=== PATIENT | female | born 1945 | race Two or more races ===

== ENCOUNTER → 2018-11-21 | Outpatient (CLI) | payer MEDICARE ==
--- NOTE | 2018-11-21 19:21 | ECHOF ---
Referral Reason:I35.0 Aortic stenosis MEASUREMENTS -------- HEIGHT: 157.5 cm WEIGHT: 102.1 kg BP: 175/80 RVIDd: 3.2 cm (< 3.3) IVSd: 1.5 cm (0.6 - 1.1) LVIDd: 4.2 cm (3.9 - 5.3) LVPWd: 1.4 cm (0.6 - 1.1) IVSs: 1.8 cm LVIDs: 2.7 cm LVPWs: 1.7 cm LA Diam: 3.5 cm (2.7 - 3.8) LAESV Index (A-L): 30.42 ml/m Ao Diam: 2.6 cm (2.0 - 3.7) AV Cusp: 1.5 cm (1.5 - 2.6) MV EXCURSION: 13.189 mm (> 18.000) MV EF SLOPE: 99 mm/s (70 - 150) EPSS: 0.3 cm MV E Prabhu: 1.29 m/s MV DecT: 179 ms MV A Prabhu: 0.71 m/s MV E/A Ratio: 1.81 AV maxP.39 mmHg AV meanP.55 mmHg AR PHT: 655 ms RAP: 5.00 mmHg RVSP: 39.77 mmHg FINDINGS -------- Sinus rhythm. This was a technically adequate study. The left ventricular size is normal. There is moderate concentric left ventricular hypertrophy. O verall left ventricular systolic function is normal with, an EF between 60 - 65 %. The right ventricle is normal in size. LA is midly dilated 29-33ml/m2. The right atrium is normal in size. Interatrial and interventricular septum intact. There is moderate aortic valve sclerosis. There is mild aortic stenosis present. Peak/mean gradie nt across the Aortic Valve is 24.39mmHg / 11.55mmHg. Mild mitral annular calcification present. Mild tricuspid regurgitation present. There is mild pulmonary hypertension. The right ventricular systolic pressure, as measured by Doppler, is 39.77mmHg. Trace/mild (physiologic) pulmonic regurgitation. The aortic root size is normal. Normal inferior vena cava with normal inspiratory collapse consistent with estimated right atrial pre ssure of 5 mmHg. There is no pericardial effusion. CONCLUSIONS -------- 1. Sinus rhythm. 2. This was a technically adequate study. 3. The left ventricular size is normal. 4. There is moderate concentric left ventricular hypertrophy. 5. Overall left ventricular systolic function is normal with, an EF between 60 - 65 %. 6. The right ventricle is normal in size. 7. LA is midly dilated 29-33ml/m2. 8. The right atrium is normal in size. 9. Interatrial and interventricular septum intact. 10. There is moderate aortic valve sclerosis. 11. There is mild aortic stenosis present. 12. Peak/mean gradient across the Aortic Valve is 24.39mmHg / 11.55mmHg. 13. Mild mitral annular calcification present. 14. Mild tricuspid regurgitation present. 15. There is mild pulmonary hypertension. 16. The right ventricular systolic pressure, as measured by Doppler, is 39.77mmHg. 17. Trace/mild (physiologic) pulmonic regurgitation. 18. The aortic root size is normal. 19. Normal inferior vena cava with normal inspiratory collapse consistent with estimated right atrial pressure of 5 mmHg. 20. There is no pericardial effusion. [employer]AT[employer] MANAGER: Merary Gracia RDCS
== END | disposition home or self-care (01) ==
LOC: RADECHMAIN 12:49
PROVIDERS: ATTEND Family Medicine
DX: I07.1 Rheumatic tricuspid insufficiency (principal); I27.20 Pulmonary hypertension, unspecified; I35.0 Nonrheumatic aortic (valve) stenosis; I37.1 Nonrheumatic pulmonary valve insufficiency; I35.8 Other nonrheumatic aortic valve disorders; I34.8 Other nonrheumatic mitral valve disorders
CPT/HCPCS: 93306

== ENCOUNTER → 2019-10-30 | Outpatient (CLI) | payer MEDICARE ==
--- NOTE | 2019-10-31 06:54 | US ---
EXAMINATION TYPE: US thyroid st tissue head/neck DATE OF EXAM: 10/30/2019 COMPARISON: NONE CLINICAL HISTORY: E07.89 Other specified disorders of thyroid. Other specified disorders of thyroid. Abnormal imaging at different facility per patient. GLAND SIZE: Right Lobe: 4.1 x 1.2 x 1.5 cm Overall Parenchyma: Heterogeneous Left Lobe: 6.7 x 1.9 x 2.5 cm Overall Parenchyma: Appears very heterogeneous Isthmus Thickness: 0.41 cm NODULES RIGHT: # of nodules measured on right: 1 1. 0.4 X 0.4 x 0.4 cm Mixed solid nodule with calcification at the mid pole with well-defined kolby ns. This nodule is as wide as it is tall and shows no intranodular vascularity. Prior size: no prior LEFT: # of nodules measured on left: 3 1. 2.3 X 1.7 x 1.8 cm heterogeneous solid nodule at the mid pole with irregular margins. This nodu le is taller than wide and shows intranodular vascularity. Prior size: no prior 2. 1.9 X 1.3 x 1.7 cm hypoechoic solid nodule at the lower pole with poorly defined margins. This n odule is taller than wide and shows intranodular vascularity. Prior size: no prior 3. 1.0 X 0.9 x 0.9 cm mixed mixed nodule at the lower pole with poorly defined margins. This nodule is as wide as it is tall and shows peripheral vascularity. Prior size: no prior ISTHMUS: # of nodules measured in the isthmus: 1 1. 0.5 X 0.6 x 0.4 cm hypoechoic cystic nodule at the lower pole with well-defined margins. This n odule is wider than tall and shows no intranodular vascularity. Prior size: no prior Bilateral neck scanned. Multiple hypoechoic areas with hyperechoic centers seen right neck. Largest m easures: 0.9 x 0.8 x 0.5 cm. IMPRESSION: 1. Enlarged heterogenous thyroid lobes with multiple nonspecific mixed, solid and cystic lesions seen . Correlate for multinodular goiter.
== END | disposition home or self-care (01) ==
LOC: RADUSWWP 16:55
PROVIDERS: ATTEND Family Medicine
DX: E04.2 Nontoxic multinodular goiter (principal)
CPT/HCPCS: 76536

== ENCOUNTER 2021-08-16 11:19 | Inpatient (IN) | payer MEDICARE ==
--- NOTE | 2021-08-16 11:38 | ED ---
General Adult HPI - General Chief complaint: Shortness of Breath Stated complaint: Low BP Time Seen by Provider: 08/16/21 11:25 Source: patient, family, RN notes reviewed Mode of arrival: ambulatory Limitations: no limitations - History of Present Illness Initial comments: Patient is a pleasant 76-year-old female presenting to the emergency department with fatigue. Onset of symptoms was several days ago. Patient did have 3 or 4 episodes of vomiting however that has resolved. No abdominal pain. Patient has mild leg swelling. Patient does have exertional dyspnea. No dyspnea on rest. No chest pain. Blood pressures morning was 97 systolic. - Related Data Allergies Allergy/AdvReac Type Severity Reaction Status Date / Time naproxen [From Aleve] Allergy Anaphylaxis Verified 08/16/21 11:24 Review of Systems ROS Statement: Those systems with pertinent positive or pertinent negative responses have been documented in the HPI. ROS Other: All systems not noted in ROS Statement are negative. Constitutional: Denies: fever Eyes: Denies: eye pain ENT: Denies: ear pain Respiratory: Reports: as per HPI, dyspnea Cardiovascular: Reports: dyspnea on exertion Endocrine: Reports: fatigue Gastrointestinal: Denies: abdominal pain Genitourinary: Denies: dysuria Musculoskeletal: Denies: back pain Skin: Denies: rash Neurological: Denies: weakness Past Medical History Past Medical History: Heart Failure, GERD/Reflux, Hypertension Additional Past Medical History / Comment(s): Gout History of Any Multi-Drug Resistant Organisms: None Reported Past Surgical History: No Surgical Hx Reported Past Psychological History: No Psychological Hx Reported Smoking Status: Never smoker Past Alcohol Use History: Occasional Past Drug Use History: None Reported General Exam Limitations: no limitations General appearance: alert, in no apparent distress Head exam: Present: normocephalic Eye exam: Present: normal appearance Neck exam: Present: normal inspection Respiratory exam: Present: normal lung sounds bilaterally Cardiovascular Exam: Present: bradycardia GI/Abdominal exam: Present: soft. Absent: tenderness Extremities exam: Present: pedal edema (+1 bilateral). Absent: calf tenderness Neurological exam: Present: alert Psychiatric exam: Present: normal affect, normal mood Skin exam: Present: normal color Course Vital Signs 08/16/21 08/16/21 11:20 12:26 Temperature 97.2 F L Pulse Rate 51 L 51 L Respiratory 22 20 Rate Blood Pressure 117/71 97/51 O2 Sat by Pulse 99 98 Oximetry EKG Findings - EKG Comments: EKG Findings:: Size pericardial 49. IL 183. QRS 91. QT 469. QTc 441. Normal axis. Normal QRS. No acute ST change. Medical Decision Making - Lab Data Result diagrams: 08/16/21 11:47 08/16/21 11:47 Lab Results 08/16/21 08/16/21 08/16/21 Range/Units 11:47 11:47 11:47 WBC 7.7 (3.8-10.6) k/uL RBC 3.79 L (3.80-5.40) m/uL Hgb 11.6 (11.4-16.0) gm/dL Hct 33.2 L (34.0-46.0) % MCV 87.6 D (80.0-100.0) fL MCH 30.6 (25.0-35.0) pg MCHC 34.9 (31.0-37.0) g/dL RDW 13.6 (11.5-15.5) % Plt Count 208 (150-450) k/uL MPV 9.0 Neutrophils % 86 % Lymphocytes % 5 % Monocytes % 4 % Eosinophils % 4 % Basophils % 0 % Neutrophils # 6.6 (1.3-7.7) k/uL Lymphocytes # 0.4 L (1.0-4.8) k/uL Monocytes # 0.3 (0-1.0) k/uL Eosinophils # 0.3 (0-0.7) k/uL Basophils # 0.0 (0-0.2) k/uL PT 10.8 (9.0-12.0) sec INR 1.0 (<1.2) APTT 24.8 (22.0-30.0) sec Sodium 119 L* (137-145) mmol/L Potassium 3.9 (3.5-5.1) mmol/L Chloride 89 L (98-107) mmol/L Carbon Dioxide 19 L (22-30) mmol/L Anion Gap 11 mmol/L BUN 45 H (7-17) mg/dL Creatinine 1.51 H (0.52-1.04) mg/dL Est GFR (CKD-EPI)AfAm 38 (>60 ml/min/1.73 sqM) Est GFR (CKD-EPI)NonAf 33 (>60 ml/min/1.73 sqM) Glucose 134 H (74-99) mg/dL Plasma Lactic Acid Sharath (0.7-2.0) mmol/L Calcium 8.3 L (8.4-10.2) mg/dL Total Bilirubin 0.7 (0.2-1.3) mg/dL AST 38 H (14-36) U/L ALT 36 H (4-34) U/L Alkaline Phosphatase 99 (38-126) U/L Troponin I (0.000-0.034) ng/mL NT-Pro-B Natriuret Pep pg/mL Total Protein 6.2 L (6.3-8.2) g/dL Albumin 3.2 L (3.5-5.0) g/dL Coronavirus (PCR) (Not Detectd) Influenza Type A RNA (Not Detectd) Influenza Type B (PCR) (Not Detectd) 08/16/21 08/16/21 08/16/21 Range/Units 11:47 11:47 11:47 WBC (3.8-10.6) k/uL RBC (3.80-5.40) m/uL Hgb (11.4-16.0) gm/dL Hct (34.0-46.0) % MCV (80.0-100.0) fL MCH (25.0-35.0) pg MCHC (31.0-37.0) g/dL RDW (11.5-15.5) % Plt Count (150-450) k/uL MPV Neutrophils % % Lymphocytes % % Monocytes % % Eosinophils % % Basophils % % Neutrophils # (1.3-7.7) k/uL Lymphocytes # (1.0-4.8) k/uL Monocytes # (0-1.0) k/uL Eosinophils # (0-0.7) k/uL Basophils # (0-0.2) k/uL PT (9.0-12.0) sec INR (<1.2) APTT (22.0-30.0) sec Sodium (137-145) mmol/L Potassium (3.5-5.1) mmol/L Chloride (98-107) mmol/L Carbon Dioxide (22-30) mmol/L Anion Gap mmol/L BUN (7-17) mg/dL Creatinine (0.52-1.04) mg/dL Est GFR (CKD-EPI)AfAm (>60 ml/min/1.73 sqM) Est GFR (CKD-EPI)NonAf (>60 ml/min/1.73 sqM) Glucose (74-99) mg/dL Plasma Lactic Acid Sharath 1.5 (0.7-2.0) mmol/L Calcium (8.4-10.2) mg/dL Total Bilirubin (0.2-1.3) mg/dL AST (14-36) U/L ALT (4-34) U/L Alkaline Phosphatase (38-126) U/L Troponin I <0.012 (0.000-0.034) ng/mL NT-Pro-B Natriuret Pep 1840 pg/mL Total Protein (6.3-8.2) g/dL Albumin (3.5-5.0) g/dL Coronavirus (PCR) (Not Detectd) Influenza Type A RNA (Not Detectd) Influenza Type B (PCR) (Not Detectd) 08/16/21 08/16/21 Range/Units 11:47 11:47 WBC (3.8-10.6) k/uL RBC (3.80-5.40) m/uL Hgb (11.4-16.0) gm/dL Hct (34.0-46.0) % MCV (80.0-100.0) fL MCH (25.0-35.0) pg MCHC (31.0-37.0) g/dL RDW (11.5-15.5) % Plt Count (150-450) k/uL MPV Neutrophils % % Lymphocytes % % Monocytes % % Eosinophils % % Basophils % % Neutrophils # (1.3-7.7) k/uL Lymphocytes # (1.0-4.8) k/uL Monocytes # (0-1.0) k/uL Eosinophils # (0-0.7) k/uL Basophils # (0-0.2) k/uL PT (9.0-12.0) sec INR (<1.2) APTT (22.0-30.0) sec Sodium (137-145) mmol/L Potassium (3.5-5.1) mmol/L Chloride (98-107) mmol/L Carbon Dioxide (22-30) mmol/L Anion Gap mmol/L BUN (7-17) mg/dL Creatinine (0.52-1.04) mg/dL Est GFR (CKD-EPI)AfAm (>60 ml/min/1.73 sqM) Est GFR (CKD-EPI)NonAf (>60 ml/min/1.73 sqM) Glucose (74-99) mg/dL Plasma Lactic Acid Sharath (0.7-2.0) mmol/L Calcium (8.4-10.2) mg/dL Total Bilirubin (0.2-1.3) mg/dL AST (14-36) U/L ALT (4-34) U/L Alkaline Phosphatase (38-126) U/L Troponin I (0.000-0.034) ng/mL NT-Pro-B Natriuret Pep pg/mL Total Protein (6.3-8.2) g/dL Albumin (3.5-5.0) g/dL Coronavirus (PCR) Not Detected (Not Detectd) Influenza Type A RNA Not Detected (Not Detectd) Influenza Type B (PCR) Not Detected (Not Detectd) - Radiology Data Radiology results: image reviewed (Chest x-ray shows no acute process) Disposition Clinical Impression: Hyponatremia, Acute kidney injury Disposition: ADMITTED IP TO THIS HOSP Is patient prescribed a controlled substance at d/c from ED?: No Referrals: Johnathon Escudero DO [Primary Care Provider] - 1-2 days Time of Disposition: 12:42
[2021-08-16 12:05] LABS: Albumin 3.2 g/dL (3.5-5.0); Calcium 8.3 mg/dL (8.4-10.2); Potassium 3.9 mmol/L (3.5-5.1); Total Bilirubin 0.7 mg/dL (0.2-1.3); Total Protein 6.2 g/dL (6.3-8.2)
[2021-08-16 12:10] LABS: Partial Thromboplastin Time 24.8 sec (22.0-30.0); Prothrombin Time 10.8 sec (9.0-12.0)
[2021-08-16 12:12] LABS: Basophils % (A) 0 %; Eosinophils # (A) 0.3 k/uL (0-0.7); Eosinophils % (A) 4 %; HCT 33.2 % (34.0-46.0); HGB 11.6 gm/dL (11.4-16.0); Lymphocytes # (A) 0.4 k/uL (1.0-4.8); Lymphocytes % (A) 5 %; MCH 30.6 pg (25.0-35.0); MCHC 34.9 g/dL (31.0-37.0); Monocytes # (A) 0.3 k/uL (0-1.0); Monocytes % (A) 4 %; Neutrophils # (A) 6.6 k/uL (1.3-7.7); Neutrophils % (A) 86 %; Platelet Count 208 k/uL (150-450); RBC 3.79 m/uL (3.80-5.40); RDW 13.6 % (11.5-15.5); WBC 7.7 k/uL (3.8-10.6)
[2021-08-16 12:15] LABS: MCV 87.6 fL (80.0-100.0)
--- NOTE | 2021-08-16 12:21 | XR ---
EXAMINATION TYPE: XR chest 2V DATE OF EXAM: 08/16/2021 COMPARISON: NONE HISTORY: Shortness of breath TECHNIQUE: Frontal and lateral views of the chest are obtained. FINDINGS: Scattered senescent parenchymal changes noted. Hyperinflation compatible with COPD. No evidence for infiltrate. No evidence for atelectasis. Heart size is stable. Mediastinal structures are stable and grossly unremarkable. No evidence for hilar prominence. Degenerative changes dorsal spine. IMPRESSION: 1. No evidence for acute pulmonary disease.
[2021-08-16] MEDS ORDERED: ONDANSETRON 4 MG/2 ML VIAL IVP PRN (12:42)
[2021-08-16] MEDS ORDERED: SODIUM CHLORIDE 0.9% 500 ML 500 ML IV STA (12:42)
[2021-08-16] MEDS ORDERED: SODIUM CHLORIDE 0.9% 1,000 ML IV STA (12:42)
[2021-08-16] MEDS ORDERED: NALOXONE 0.4 MG/ML 1 ML VIAL IV PRN (12:42)
[2021-08-16] MEDS ORDERED: SODIUM CHLORIDE 0.9% 1,000 ML IV SCH (12:45)
[2021-08-16] MEDS: PANTOPRAZOLE 40 MG/10 ML VIAL IV SCH (13:12)
--- NOTE | 2021-08-16 15:36 | P.NPCON ---
History of Present Illness - Reason for Consult Consult date: 08/16/21 acute renal failure, hyponatremia - Chief Complaint Not feeling well - History of Present Illness 76-year-old white lady coming to the hospital not feeling well for the last 1 week. Decreased oral intake. She had nausea with 3-4 episodes of vomiting. No diarrhea. No fevers chills or rigors. She thought she had flulike symptoms, with history of congestive heart failure was taking her medications which include lisinopril hydrochlorothiazide and was drinking plenty of water. She also noticed decreased urine output in the last week. No recent contrast studies or NSAID use. She has a baseline creatinine of 1.0-1.1 MG per DL with a GFR of 52, CK D3 1 suspected nephrosclerosis. Creatinine 4 days ago was 1.6, on admission 1.5 MG per DL. Sodium was 119. Currently on normal saline at 75 ML's an hour. Blood pressures soft low normal range. Review of Systems Constitutional: Reports as per HPI Past Medical History Past Medical History: Heart Failure, GERD/Reflux, Hypertension Additional Past Medical History / Comment(s): Gout History of Any Multi-Drug Resistant Organisms: None Reported Past Surgical History: No Surgical Hx Reported Past Psychological History: No Psychological Hx Reported Smoking Status: Never smoker Past Alcohol Use History: Occasional Past Drug Use History: None Reported Medications and Allergies Home Medications Medication Instructions Recorded Confirmed Type Allopurinol [Zyloprim] 100 mg PO DAILY 08/16/21 08/16/21 History Aspirin EC [Ecotrin Low Dose] 81 mg PO BID 08/16/21 08/16/21 History Atorvastatin [Lipitor] 40 mg PO HS 08/16/21 08/16/21 History Calcium Carbonate [Calcium] 1,200 mg PO DAILY 08/16/21 08/16/21 History Cholecalciferol [Vitamin D3 (25 25 mcg PO DAILY 08/16/21 08/16/21 History Mcg = 1000 Iu)] Cider Vinegar [Apple Cider Vinegar] 300 mg PO BID 08/16/21 08/16/21 History Cinnamon Bark [Cinnamon] 2,000 mg PO BID 08/16/21 08/16/21 History Cyanocobalamin (Vitamin B-12) 2,500 mcg PO DAILY 08/16/21 08/16/21 History [Vitamin B-12] Ferrous Sulfate [Feosol] 325 mg PO Q48H 08/16/21 08/16/21 History Folic Acid 0.8 mg PO DAILY 08/16/21 08/16/21 History Furosemide [Lasix] 40 mg PO DAILY 08/16/21 08/16/21 History Brenda Root 550mg 550 mg PO DAILY 08/16/21 08/16/21 History Glucosamine HCl/Chondroitin Luke 1 cap PO BID 08/16/21 08/16/21 History [Glucosamine-Chondroitin Cap] Krill/[place]-3/Dha/Epa/Lipids 1 cap PO DAILY 08/16/21 08/16/21 History [Krill Oil 350 mg Softgel] L.acidoph,Paracasei, B.lactis 1 cap PO DAILY 08/16/21 08/16/21 History [Probiotic] Lisinopril-Hctz 20-25 mg 1 tab PO DAILY 08/16/21 08/16/21 History [Zestoretic 20-25] Magnesium 100 mg PO DAILY 08/16/21 08/16/21 History Potassium Chloride ER [K-Dur 10] 10 meq PO DAILY 08/16/21 08/16/21 History Turmeric Root Extract [Turmeric] 500 mg PO DAILY 08/16/21 08/16/21 History Ubidecarenone [Co Q-10] 200 mg PO DAILY 08/16/21 08/16/21 History Zinc 50 mg PO DAILY 08/16/21 08/16/21 History carvediloL [Coreg] 6.25 mg PO BID 08/16/21 08/16/21 History Allergies Allergy/AdvReac Type Severity Reaction Status Date / Time naproxen [From Aleve] Allergy Anaphylaxis Verified 08/16/21 12:47 Physical Exam Vitals: Vital Signs Temp Pulse Pulse Resp BP BP Pulse Ox 08/16/21 13:58 98.1 F 55 L 16 144/71 100 08/16/21 13:07 62 18 108/49 100 08/16/21 12:26 51 L 20 97/51 98 08/16/21 11:20 97.2 F L 51 L 22 117/71 99 Intake and Output 08/16/21 08/16/21 08/16/21 06:59 14:59 22:59 Other: Weight 90.718 kg No acute distress S1-S2 heard Decreased breath sounds Abdomen soft, bladder distention No edema Results - Lab Results Most recent lab results Calcium 8.3 mg/dL (8.4-10.2) L 08/16/21 11:47 08/16/21 11:47 08/16/21 11:47 Assessment and Plan Assessment: #1 acute kidney injury suspect prerenal with decreased oral intake and conc omitant use of diuretics. #2 hyponatremia suspect hypovolemic with decreased oral intake along with thiazide diuretic. -SIADH is a possibility with nausea and free water intake. #3 diastolic CHF currently compensated #4 low normal blood pressures #5 metabolic acidosis secondary to acute kidney injury. Plan: #1 agree with normal saline continue at 75 ML's an hour. #2 bladder scan to rule out urinary retention #3 urine analysis and urine electrolytes. #4 agree with holding all antihypertensive medications including diuretics. #5 check urine osmolality, serum osmolality, TSH, cortisol, repeat BMP and uric acid #6 avoid nephrotoxic agents and hypotensive episodes
[2021-08-16 18:34] LABS: African American GFR (CKD) 44 (>60 ml/min/1.73 sqM); Anion Gap 7 mmol/L; Blood Urea Nitrogen 42 mg/dL (7-17); Calcium 8.1 mg/dL (8.4-10.2); Carbon Dioxide 22 mmol/L (22-30); Chloride 91 mmol/L (98-107); Glucose 124 mg/dL (74-99); Non-African American GFR(CKD) 39 (>60 ml/min/1.73 sqM); Potassium 4.1 mmol/L (3.5-5.1); Sodium 120 mmol/L (137-145)
[2021-08-16] MEDS: FAMOTIDINE 20 MG TAB PO SCH (20:18)
--- NOTE | 2021-08-16 21:24 | P.HPIM ---
History of Present Illness H&P Date: 08/16/21 Chief Complaint: generalized weakness and fatigue Patient is a 76-year-old female with a known history of hypertension, GERD and history of gout, chronic CHF with diastolic dysfunction presents to ER with complaints of generalized weakness and fatigue for the past 1 week. Patient states that she felt like flu symptoms. Did have nausea and episodes of vomiting couple days ago. Patient has been having decreased oral intake. Today patient felt very weak and fatigued which is worsening and made her to come to ER. Patient has been taking her medications. Patient is on Coreg, lisinopril, hydrochlorothiazide, and Lasix at home. Patient also has decreased urine output . Did have chills and sweating few days ago but currently denies any fever or chills. Chest x-ray showed no acute cardiopulmonary process EKG showed sinus bradycardia with heart rate 49. Laboratory data showed WBC 7.7 hemoglobin 11.6 and platelets 208 Sodium 119, potassium 3.9 chloride 89 bicarb is 19 BUN 45 creatinine 1.51 AST 38 ALT 36 alk phos 99 and troponin x1, proBNP 1840 Albumin 3.2 Influenza A and coronavirus PCR not detected. Patient was hypotensive with blood pressure 97/51 on admission. Pulse ox 98% on room air. Review of Systems Constitutional: Patient denies any fever or chills . Patient does have generalized weakness and fatigue. Abdomen: Patient denied nausea vomiting and diarrhea and abdominal pain. Patient did have of vomiting Cardiovascular: Patient denies any chest pain or short of breath no palpitations. Respiratory: patient denied any cough or sputum production. No shortness of breath Neurologic: Patient denied any numbness or tingling headache. Musculoskeletal: Patient denies any complaints of joint swelling or deformity. Skin: Negative Psychiatric: Negative Endocrine: No heat or cold intolerance. No recent weight gain. Genitourinary: No dysuria or hematuria. All other 14 point ROS negative except the above Past Medical History Past Medical History: Heart Failure, GERD/Reflux, Hypertension Additional Past Medical History / Comment(s): Gout History of Any Multi-Drug Resistant Organisms: None Reported Past Surgical History: No Surgical Hx Reported Past Psychological History: No Psychological Hx Reported Smoking Status: Never smoker Past Alcohol Use History: Occasional Past Drug Use History: None Reported Medications and Allergies Home Medications Medication Instructions Recorded Confirmed Type Allopurinol [Zyloprim] 100 mg PO DAILY 08/16/21 08/16/21 History Aspirin EC [Ecotrin Low Dose] 81 mg PO BID 08/16/21 08/16/21 History Atorvastatin [Lipitor] 40 mg PO HS 08/16/21 08/16/21 History Calcium Carbonate [Calcium] 1,200 mg PO DAILY 08/16/21 08/16/21 History Cholecalciferol [Vitamin D3 (25 25 mcg PO DAILY 08/16/21 08/16/21 History Mcg = 1000 Iu)] Cider Vinegar [Apple Cider Vinegar] 300 mg PO BID 08/16/21 08/16/21 History Cinnamon Bark [Cinnamon] 2,000 mg PO BID 08/16/21 08/16/21 History Cyanocobalamin (Vitamin B-12) 2,500 mcg PO DAILY 08/16/21 08/16/21 History [Vitamin B-12] Ferrous Sulfate [Feosol] 325 mg PO Q48H 08/16/21 08/16/21 History Folic Acid 0.8 mg PO DAILY 08/16/21 08/16/21 History Furosemide [Lasix] 40 mg PO DAILY 08/16/21 08/16/21 History Brenda Root 550mg 550 mg PO DAILY 08/16/21 08/16/21 History Glucosamine HCl/Chondroitin Luke 1 cap PO BID 08/16/21 08/16/21 History [Glucosamine-Chondroitin Cap] Krill/[place]-3/Dha/Epa/Lipids 1 cap PO DAILY 08/16/21 08/16/21 History [Krill Oil 350 mg Softgel] L.acidoph,Paracasei, B.lactis 1 cap PO DAILY 08/16/21 08/16/21 History [Probiotic] Lisinopril-Hctz 20-25 mg 1 tab PO DAILY 08/16/21 08/16/21 History [Zestoretic 20-25] Magnesium 100 mg PO DAILY 08/16/21 08/16/21 History Potassium Chloride ER [K-Dur 10] 10 meq PO DAILY 08/16/21 08/16/21 History Turmeric Root Extract [Turmeric] 500 mg PO DAILY 08/16/21 08/16/21 History Ubidecarenone [Co Q-10] 200 mg PO DAILY 08/16/21 08/16/21 History Zinc 50 mg PO DAILY 08/16/21 08/16/21 History carvediloL [Coreg] 6.25 mg PO BID 08/16/21 08/16/21 History Allergies Allergy/AdvReac Type Severity Reaction Status Date / Time naproxen [From Aleve] Allergy Anaphylaxis Verified 08/16/21 12:47 Physical Exam Vitals: Vital Signs Temp Pulse Pulse Resp BP BP Pulse Ox 08/16/21 13:58 98.1 F 55 L 16 144/71 100 08/16/21 13:07 62 18 108/49 100 08/16/21 12:26 51 L 20 97/51 98 08/16/21 11:20 97.2 F L 51 L 22 117/71 99 Intake and Output 08/16/21 08/16/21 08/16/21 06:59 14:59 22:59 Intake Total 375 Balance 375 Intake: Intake, IV Titration 375 Amount Sodium Chloride 0.9% 1, 375 000 ml @ 75 mls/hr IV . [id number] LAUREN Rx#:[id number] Other: # Voids 2 Weight 90.718 kg PHYSICAL EXAMINATION: Patient is lying in the bed comfortably, no acute distress, awake alert and oriented.. HEENT: Normocephalic. Neck is supple. Pupils reactive. Nostrils clear. Oral cavi ty is moist. Neck reveals no JVD, carotid bruits, or thyromegaly. CHEST EXAMINATION: Trachea is central. Symmetrical expansion. Lung osuna clear to auscultation and percussion. CARDIAC: Normal S1, S2 with no gallops. No murmurs ABDOMEN: Soft. Bowel sounds normal. No organomegaly. No abdominal bruits. Extremities: Trace bilateral pedal edema. No clubbing or cyanosis Neurologically awake, alert, oriented x3 with well-coordinated movements. No focal deficits noted Skin: No rash or skin lesions. Psychiatric: Cooperative. Nonsuicidal Musculoskeletal: No joint swelling or deformity. Normal range of motion. Results CBC & Chem 7: 08/16/21 11:47 08/16/21 17:59 Labs: Abnormal Lab Results - Last 24 Hours (Table) 08/16/21 08/16/21 08/16/21 Range/Units 11:47 11:47 17:59 RBC 3.79 L (3.80-5.40) m/uL Hct 33.2 L (34.0-46.0) % Lymphocytes # 0.4 L (1.0-4.8) k/uL Sodium 119 L* 120 L (137-145) mmol/L Chloride 89 L 91 L (98-107) mmol/L Carbon Dioxide 19 L (22-30) mmol/L BUN 45 H 42 H (7-17) mg/dL Creatinine 1.51 H 1.33 H (0.52-1.04) mg/dL Glucose 134 H 124 H (74-99) mg/dL Calcium 8.3 L 8.1 L (8.4-10.2) mg/dL AST 38 H (14-36) U/L ALT 36 H (4-34) U/L Total Protein 6.2 L (6.3-8.2) g/dL Albumin 3.2 L (3.5-5.0) g/dL Thrombosis Risk Factor Assmnt - DVT/VTE Prophylaxis DVT/VTE Prophylaxis: Pharmacologic Prophylaxis ordered - Choose All That Apply Any of the Below Risk Factors Present?: Yes Each Factor Represents 1 point: Obesity (BMI >25), Serious lung disease incl. pneumonia (< 1month) Other Risk Factors: Yes Each Risk Factor Represents 2 Points: Age 61-74 years Each Risk Factor Represents 3 Points: Family history of DVT/PE Thrombosis Risk Factor Assessment Total Risk Factor Score: 7 Thrombosis Risk Factor Assessment Level: High Risk Assessment and Plan Assessment: Acute kidney injury likely prerenal due to decreased oral intake and medications including lisinopril and hydrochlorothiazide. Creatinine 1.51 on admission Generalized weakness and fatigue Hypoosmolar hyponatremia. 119 due to decreased oral intake and hydrochlorothiazide. Chronic CHF with diastolic dysfunction Hypertension patient is hypotensive currently Mild transaminitis DVT prophylaxis with heparin subcu Plan:-Patient becomes IV hydration with normal saline at 75 cc/h. Bladder scan was ordered to rule out urine retention. Follow-up urine electrolytes. Antihypertensives are on hold currently. Follow-up sodium level and renal function closely. Nephrology is on board. Time with Patient: Greater than 30
[2021-08-17] MEDS: HEPARIN SODIUM,PORCINE/PF 5,000 UNIT/0.5 ML SYRINGE SQ SCH ×2 (07:36→19:45)
[2021-08-17] MEDS: PANTOPRAZOLE 40 MG/10 ML VIAL IV SCH (07:36)
[2021-08-17] MEDS: FAMOTIDINE 20 MG TAB PO SCH ×2 (07:37→19:45)
[2021-08-17] MEDS: ACETAMINOPHEN TAB 325 MG TAB PO PRN ×2 (07:37→19:44)
[2021-08-17 10:08] LABS: African American GFR (CKD) 54.9 (60.0-200.0); Anion Gap 12.6 mmol/L (10.00-18.00); BUN/Creat Ratio 28.57 Ratio (12.00-20.00); Calcium 8.3 mg/dL (8.7-10.3); Carbon Dioxide 20.3 mmol/L (20.0-27.5); Magnesium 2.1 mg/dL (1.5-2.4); Non-African American GFR(CKD) 47.4 (60.0-200.0); Potassium 3.9 mmol/L (3.5-5.5)
--- NOTE | 2021-08-17 15:32 | P.PN ---
Subjective Patient is seen for follow-up for hyponatremia, mostly hypovolemic and improved with normal saline. Serum sodium has improved to 130 today from 120 yesterday. Admission sodium was 119 yesterday morning. Overall patient states she is feeling better and feels like her normal self. Eating well Maintained on normal saline. Objective - Vital Signs Vital signs: Vital Signs Temp 97.5 F L 08/17/21 11:09 Pulse 64 08/17/21 11:09 Resp 18 08/17/21 11:09 BP 103/57 08/17/21 11:09 Pulse Ox 96 08/17/21 11:09 Intake & Output 08/16/21 08/17/21 08/17/21 18:59 06:59 18:59 Intake Total 375 660 Balance 375 660 Weight 90.718 kg Intake: Intake, IV Titration 375 Amount Sodium Chloride 0.9% 1, 375 000 ml @ 75 mls/hr IV . [id number] LAUREN Rx#:[id number] Oral 660 Other: Voiding Method Toilet # Voids 2 3 1 - Exam Patient is awake, comfortable, not in any acute distress Examination of the heart S1 and S2 Examination lungs bilateral breath sounds are heard Abdomen is soft nontender Examination of lower extremities shows no evidence of edema LEASE OUT MAN exam grossly intact - Labs CBC & Chem 7: 08/16/21 11:47 08/17/21 05:11 Labs: Abnormal Lab Results - Last 24 Hours (Table) 08/16/21 08/17/21 Range/Units 17:59 05:11 Sodium 120 L 130 L (137-145) mmol/L Chloride 91 L (98-107) mmol/L BUN 42 H 32.0 H (7-17) mg/dL Creatinine 1.33 H (0.52-1.04) mg/dL Est GFR (CKD-EPI)AfAm 54.9 L (60.0-200.0) Est GFR (CKD-EPI)NonAf 47.4 L (60.0-200.0) BUN/Creatinine Ratio 28.57 H (12.00-20.00) Ratio Glucose 124 H (74-99) mg/dL Calcium 8.1 L 8.3 L (8.4-10.2) mg/dL Assessment and Plan Assessment: 1. Hypovolemic hyponatremia currently improved with saline 2. Acute kidney injury, prerenal, improved with IV hydration 3. History of diastolic CHF 4. Metabolic acidosis associated with acute kidney injury currently improved Plan: Maintain good oral intake. Repeat labs in a.m. If patient is discharged she will need repeat labs to be done in 1-2 days post discharge. Hold hydrochlorothiazide post discharge Patient will need to resume low-dose Lasix as outpatient, probably in about 5-7 days depending on her volume status.
[2021-08-17] MEDS: SODIUM CHLORIDE 0.9% 1,000 ML IV SCH (17:23)
[2021-08-18] MEDS: SODIUM CHLORIDE 0.9% 1,000 ML IV SCH (05:12)
[2021-08-18] MEDS ORDERED: PANTOPRAZOLE 40 MG TABLET PO SCH (07:30)
[2021-08-18 09:17] LABS: Basophils # (A) 0.01 X 10*3/uL (0.00-0.10); Basophils % (A) 0.2 %; Eosinophils # (A) 0.21 X 10*3/uL (0.04-0.35); Eosinophils % (A) 3.5 %; HCT 27.7 % (37.2-46.3); HGB 9.3 g/dL (12.0-15.0); Immature Grans, Automated 0.7 %; Lymphocytes # (A) 0.52 X 10*3/uL (0.90-5.00); Lymphocytes % (A) 8.6 %; MCH 29.5 pg (27.0-32.0); MCHC 33.6 g/dL (32.0-37.0); MCV 87.9 fL (80.0-97.0); Mean Platelet Volume 10.7 fL (9.5-12.2); Monocytes # (A) 0.58 X 10*3/uL (0.20-1.00); Monocytes % (A) 9.6 %; NRBC Per 100 WBC 0 /100 WBCS (0.0-0.0); Neutrophils # (A) 4.67 X 10*3/uL (1.80-7.70); Neutrophils % (A) 77.4 %; Platelet Count 252 X 10*3/uL (140-440); RBC 3.15 X 10*6/uL (4.10-5.20); RDW 13.2 % (11.5-14.5); WBC 6.03 X 10*3/uL (4.50-10.00)
[2021-08-18 09:20] LABS: African American GFR (CKD) 62.9 (60.0-200.0); Anion Gap 8.2 mmol/L (10.00-18.00); Calcium 8.1 mg/dL (8.7-10.3); Carbon Dioxide 20.8 mmol/L (20.0-27.5); Non-African American GFR(CKD) 54.3 (60.0-200.0); Potassium 4.1 mmol/L (3.5-5.5)
--- NOTE | 2021-08-18 09:36 | P.PN ---
Subjective Progress Note Date: 08/17/21 Patient is a 76-year-old female with a known history of hypertension, GERD and history of gout, chronic CHF with diastolic dysfunction presents to ER with complaints of generalized weakness and fatigue for the past 1 week. Patient states that she felt like flu symptoms. Did have nausea and episodes of v omiting couple days ago. Patient has been having decreased oral intake. Today patient felt very weak and fatigued which is worsening and made her to come to ER. Patient has been taking her medications. Patient is on Coreg, lisinopril, hydrochlorothiazide, and Lasix at home. Patient also has decreased urine output. Did have chills and sweating few days ago but currently denies any fever or chills. Chest x-ray showed no acute cardiopulmonary process EKG showed sinus bradycardia with heart rate 49. Laboratory data showed WBC 7.7 hemoglobin 11.6 and platelets 208 Sodium 119, potassium 3.9 chloride 89 bicarb is 19 BUN 45 creatinine 1.51 AST 38 ALT 36 alk phos 99 and troponin x1, proBNP 1840 Albumin 3.2 Influenza A and coronavirus PCR not detected. Patient was hypotensive with blood pressure 97/51 on admission. Pulse ox 98% on room air. 08/17/2021 Patient is currently sitting on the head of the bed. Awake alert [place] x3. Feels better. Generalized weakness is improving. No complaints of chest pain or shortness of. No cough or sputum production. Sodium level improved to 130 today. BUN 32 and creatinine 1.1. Blood pressure is 103/57 this morning. Blood pressure medications continues to be on hold. Nephrology is on board. Patient is being continued on normal saline at 75 cc/h. Encourage oral diet. Current medications reviewed. Objective - Vital Signs Vital signs: Vital Signs Temp 98.2 F 08/17/21 20:48 Pulse 71 08/17/21 20:48 Resp 16 08/17/21 20:48 BP 146/69 08/17/21 20:48 Pulse Ox 97 08/17/21 20:48 Intake & Output 08/17/21 08/17/21 08/18/21 06:59 18:59 06:59 Intake Total 1560 Balance 1560 Intake: Intake, IV Titration 900 Amount Sodium Chloride 0.9% 1, 900 000 ml @ 75 mls/hr IV . [id number] STA Rx#:[id number] Oral 660 Other: Voiding Method Toilet Toilet # Voids 3 6 - Exam PHYSICAL EXAMINATION: Patient is lying in the bed comfortably, no acute distress, awake alert and oriented.. HEENT: Normocephalic. Neck is supple. Pupils reactive. Nostrils clear. Oral cavity is moist. Neck reveals no JVD, carotid bruits, or thyromegaly. CHEST EXAMINATION: Trachea is central. Symmetrical expansion. Lung osuna clear to auscultation and percussion. CARDIAC: Normal S1, S2 with no gallops. No murmurs ABDOMEN: Soft. Bowel sounds normal. No organomegaly. No abdominal bruits. Extremities: Trace bilateral pedal edema. No clubbing or cyanosis Neurologically awake, alert, oriented x3 with well-coordinated movements. No focal deficits noted Skin: No rash or skin lesions. Psychiatric: Cooperative. Nonsuicidal Musculoskeletal: No joint swelling or deformity. Normal range of motion. - Labs CBC & Chem 7: 08/18/21 06:41 08/18/21 06:41 Labs: Abnormal Lab Results - Last 24 Hours (Table) 08/17/21 Range/Units 05:11 Sodium 130 L (135-145) mmol/L BUN 32.0 H (9.0-27.0) mg/dL Est GFR (CKD-EPI)AfAm 54.9 L (60.0-200.0) Est GFR (CKD-EPI)NonAf 47.4 L (60.0-200.0) BUN/Creatinine Ratio 28.57 H (12.00-20.00) Ratio Calcium 8.3 L (8.7-10.3) mg/dL Assessment and Plan Assessment: Acute kidney injury likely prerenal due to decreased oral intake and medications including lisinopril and hydrochlorothiazide. Creatinine 1.51 on admission. Improving. Generalized weakness and fatigue Hypoosmolar hyponatremia. Sodium level 119 due to decreased oral intake and hydrochlorothiazide. Improved to 130 today Chronic CHF with diastolic dysfunction Hypertension patient is hypotensive currently Mild transaminitis DVT prophylaxis with heparin subcu Plan:-Patient becomes IV hydration with normal saline at 75 cc/h. patient denied any urine retention. Follow-up urine electrolytes. Antihypertensives are on hold currently. Follow-up sodium level and renal function closely. Nephrology is on board. Time with Patient: Greater than 30
[2021-08-18] MEDS: ACETAMINOPHEN TAB 325 MG TAB PO PRN (10:56)
[2021-08-18] MEDS: HEPARIN SODIUM,PORCINE/PF 5,000 UNIT/0.5 ML SYRINGE SQ SCH (10:56)
[2021-08-18] MEDS: FAMOTIDINE 20 MG TAB PO SCH (11:05)
[2021-08-18 12:05] VITALS: BP 146/82; PULSE 68; RESP 17; TEMP 98
--- NOTE | 2021-08-18 17:23 | P.PN ---
Subjective Patient is seen for follow-up for hyponatremia, mostly hypovolemic and improved with normal saline. Serum sodium has improved to 132 today. Admission sodium was 119 yesterday morning. Overall patient states she is feeling better and feels like her normal self. Eating well Maintained on normal saline. Objective - Vital Signs Vital signs: Vital Signs Temp 98 F 08/18/21 12:04 Pulse 68 08/18/21 12:04 Resp 17 08/18/21 12:04 BP 146/82 08/18/21 12:04 Pulse Ox 97 08/18/21 12:04 Intake & Output 08/17/21 08/18/21 08/18/21 18:59 06:59 18:59 Intake Total 1560 900 960 Balance 1560 900 960 Intake: Intake, IV Titration 900 900 Amount Sodium Chloride 0.9% 1, 900 000 ml @ 75 mls/hr IV . [id number] LAUREN Rx#:[id number] Sodium Chloride 0.9% 1, 900 000 ml @ 75 mls/hr IV . [id number] STA Rx#:[id number] Oral 660 960 Other: Voiding Method Toilet # Voids 6 2 1 # Bowel Movements 1 - Exam Patient is awake, comfortable, not in any acute distress She is currently on the commode - Labs CBC & Chem 7: 08/18/21 06:41 08/18/21 06:41 Labs: Abnormal Lab Results - Last 24 Hours (Table) 08/18/21 08/18/21 Range/Units 06:41 06:41 RBC 3.15 L (4.10-5.20) X 10*6/uL Hgb 9.3 L (12.0-15.0) g/dL Hct 27.7 L (37.2-46.3) % Lymphocytes # 0.52 L (0.90-5.00) X 10*3/uL Sodium 132 L (135-145) mmol/L Anion Gap 8.20 L (10.00-18.00) mmol/L Est GFR (CKD-EPI)NonAf 54.3 L (60.0-200.0) Glucose 115 H (70-110) mg/dL Calcium 8.1 L (8.7-10.3) mg/dL Assessment and Plan Assessment: 1. Hypovolemic hyponatremia currently improved with saline 2. Acute kidney injury, prerenal, improved with IV hydration 3. History of diastolic CHF, currently compensated 4. Metabolic acidosis associated with acute kidney injury currently improved Plan: Hold hydrochlorothiazide post discharge Patient will need to resume low-dose Lasix as outpatient, probably in about 5-7 days depending on her volume status. Repeat labs in about 1 week post discharge
[2021-08-19] MEDS ORDERED: FAMOTIDINE 20 MG TAB PO SCH (09:00)
--- NOTE | 2021-08-19 12:08 | P.DS ---
Providers Date of admission: 08/16/21 12:45 Expected date of discharge: 08/18/21 Attending physician: Mabel Amos Consults: 08/16/21 12:43 Consult Physician Routine Consulting Provider: Shira Green Consult Reason/Comments: Hyponatremia, bry Do you want consulting provider notified?: Yes Primary care physician: Johnathon Wiley Hospital Course: Final diagnosis Acute kidney injury likely prerenal due to decreased oral intake and medications including lisinopril and hydrochlorothiazide. Creatinine 1.51 on admission. Improving. Generalized weakness and fatigue Hypoosmolar hyponatremia. Sodium level 119 due to decreased oral intake and hydrochlorothiazide. Improved to 132 today Chronic CHF with diastolic dysfunction Hypertension patient is hypotensive currently Mild transaminitis DVT prophylaxis full code Discharge disposition Patient is being discharged in a stable condition with guarded prognosis to home. Patient will follow-up with Dr. Wiley in the outpatient setting upon discharge. Patient is to follow up with nephrology as scheduled. Total time taken is greater than 35 minutes. Hospital course This is a 76-year-old female who was recently admitted with nausea vomiting and abdominal pain and found to be hyponatremic. Patient was hydrated and followed closely by nephrology. Sodium improved to 132 today and patient will follow up closely in one week with nephrology and also have labs drawn in 2-3 days to monitor electrolytes and kidney functions closely. Patient to hold lisinopril and lasix for now until repeat labs and follow up with nephro. Patient feeling much better and no further nausea or vomiting. Patient is requesting discharge. Currently no reports of chest pain, shortness of breath, or palpitations. Patient is afebrile. No reports of nausea or vomiting and patient is tolerating diet. Patient will be discharge home today. On exam vital signs are stable. Cardio S1, S2 are muffled. Respiratory system shows diminished breath sounds at the bases with no wheezing or rhonchi noted. Abdomen is soft and obese, and nontender. Nervous system shows no focal deficits. Please refer to medication reconciliation sheet for a list of medications. The impression and plan of care has been dictated by Yamilka Agrawal, Nurse Practitioner as directed. Dr. Bette MD I have performed a history and examination and MDM of this patient, discussed the same with the dictator, and agree with the dictator's assessment and plan as written ,documented as a scribe. Based on total visit time, I have performed more than 50% of the visit. Patient Condition at Discharge: Stable Plan - Discharge Summary New Discharge Prescriptions: New Famotidine [Pepcid] 20 mg PO DAILY 30 Days #30 tab Acetaminophen Tab [Tylenol] 650 mg PO Q6HR PRN tab PRN Reason: Fever And/ Or Pain Continue Ferrous Sulfate [Iron (65 MG Elemental)] 325 mg PO Q48H Cider Vinegar [Apple Cider Vinegar] 300 mg PO BID Calcium Carbonate [Calcium] 1,200 mg PO DAILY Zinc 50 mg PO DAILY Cholecalciferol [Vitamin D3 (25 Mcg = 1000 Iu)] 25 mcg PO DAILY Aspirin EC [Ecotrin Low Dose] 81 mg PO BID Brenda Root 550mg 550 mg PO DAILY Glucosamine HCl/Chondroitin Luke [Glucosamine-Chondroitin Cap] 1 cap PO BID Cinnamon Bark [Cinnamon] 2,000 mg PO BID Turmeric Root Extract [Turmeric] 500 mg PO DAILY Folic Acid 0.8 mg PO DAILY Magnesium 100 mg PO DAILY Cyanocobalamin (Vitamin B-12) [Vitamin B-12] 2,500 mcg PO DAILY Allopurinol [Zyloprim] 100 mg PO DAILY Ubidecarenone [Co Q-10] 200 mg PO DAILY Krill/[place]-3/Dha/Epa/Lipids [Krill Oil 350 mg Softgel] 1 cap PO DAILY Atorvastatin [Lipitor] 40 mg PO HS Potassium Chloride ER [K-Dur 10] 10 meq PO DAILY L.acidoph,Paracasei, B.lactis [Probiotic] 1 cap PO DAILY Discontinued carvediloL [Coreg] 6.25 mg PO BID Lisinopril-Hctz 20-25 mg [Zestoretic 20-25] 1 tab PO DAILY Furosemide [Lasix] 40 mg PO DAILY Discharge Medication List Allopurinol [Zyloprim] 100 mg PO DAILY 08/16/21 [History] Aspirin EC [Ecotrin Low Dose] 81 mg PO BID 08/16/21 [History] Atorvastatin [Lipitor] 40 mg PO HS 08/16/21 [History] Calcium Carbonate [Calcium] 1,200 mg PO DAILY 08/16/21 [History] Cholecalciferol [Vitamin D3 (25 Mcg = 1000 Iu)] 25 mcg PO DAILY 08/16/21 [History] Cider Vinegar [Apple Cider Vinegar] 300 mg PO BID 08/16/21 [History] Cinnamon Bark [Cinnamon] 2,000 mg PO BID 08/16/21 [History] Cyanocobalamin (Vitamin B-12) [Vitamin B-12] 2,500 mcg PO DAILY 08/16/21 [History] Ferrous Sulfate [Iron (65 MG Elemental)] 325 mg PO Q48H 08/16/21 [History] Folic Acid 0.8 mg PO DAILY 08/16/21 [History] Brenda Root 550mg 550 mg PO DAILY 08/16/21 [History] Glucosamine HCl/Chondroitin Luke [Glucosamine-Chondroitin Cap] 1 cap PO BID 08/16/21 [History] Krill/[place]-3/Dha/Epa/Lipids [Krill Oil 350 mg Softgel] 1 cap PO DAILY 08/16/21 [History] L.acidoph,Paracasei, B.lactis [Probiotic] 1 cap PO DAILY 08/16/21 [History] Magnesium 100 mg PO DAILY 08/16/21 [History] Potassium Chloride ER [K-Dur 10] 10 meq PO DAILY 08/16/21 [History] Turmeric Root Extract [Turmeric] 500 mg PO DAILY 08/16/21 [History] Ubidecarenone [Co Q-10] 200 mg PO DAILY 08/16/21 [History] Zinc 50 mg PO DAILY 08/16/21 [History] Acetaminophen Tab [Tylenol] 650 mg PO Q6HR PRN tab 08/18/21 [Rx] Famotidine [Pepcid] 20 mg PO DAILY 30 Days #30 tab 08/18/21 [Rx] Follow up Appointment(s)/Referral(s): Salma Levy MD [STAFF PHYSICIAN] - 09/01/21 11:40 am (Nephrology.) Johnathon Wiley DO [Primary Care Provider] - 08/20/21 10:00 am Ambulatory/Diagnostic Orders: Basic Metabolic Panel [LAB.AMB] Time Frame: 3 Days, Location: None Selected Patient Instructions/Handouts: Famotidine (By mouth), Acute Kidney Injury (DC), Hyponatremia (DC) Activity/Diet/Wound Care/Special Instructions: Activity Limited until follow-up Follow-up with primary care provider on discharge Follow-up with nephrology in the next week Continue current diet Continue to hold Lasix until repeat labs and follow-up with nephrology Continue holding lisinopril until follow-up with nephrology Recommend repeat labs in 2-3 days (see prescription to have blood work done) Discharge Disposition: HOME SELF-CARE
== END 2021-08-18 14:23 | disposition home or self-care (01) | DRG 683 ==
LOC: EC 11:19 → 5NMEDONC 12:45
PROVIDERS: ADMIT Internal Medicine; ATTEND Internal Medicine
DX: N17.9 Acute kidney failure, unspecified (principal); E87.2 Acidosis; I50.32 Chronic diastolic (congestive) heart failure; E22.2 Syndrome of inappropriate secretion of antidiuretic hormone; Z20.822 Contact with and (suspected) exposure to COVID-19; K21.9 Gastro-esophageal reflux disease without esophagitis; R00.1 Bradycardia, unspecified; Z68.37 Body mass index [BMI] 37.0-37.9, adult; R74.01 Elevation of levels of liver transaminase levels; E66.9 Obesity, unspecified; M10.9 Gout, unspecified; I11.0 Hypertensive heart disease with heart failure; E86.1 Hypovolemia; I95.9 Hypotension, unspecified; Z79.899 Other long term (current) drug therapy; Z88.5 Allergy status to narcotic agent
CPT/HCPCS: 36415; 71046; 80048; 80053; 82533; 83605; 83735; 83880; 84443; 84484; 85025; 85610; 85730; 87324; 87502; 87635; 93005; 96361; 96374; 99285